=== PATIENT | male | born 1960 | race Two or more races ===

== ENCOUNTER 2017-05-26 23:53 | Emergency (ER) | payer MEDICARE, MEDICAID ==
[~2017-05-26] VITALS: Ht 165.1 cm; Wt 76.2 kg
[~2017-05-26 23:53] MED LIST: ACETAMINOPHEN-1 EAC1 ORAL; ACTOS15 MG ORAL; AMLODIPINE BESY10 MG ORAL; ATIVAN0.5 MG ORAL; ATIVAN2 MG ORAL; ATORVASTATIN CA40 MG ORAL; BACLOFEN10 MG ORAL; BACTRIM-DS1 EA ORAL; CLONIDINE HCL0.2 MG PO; CLONIDINE0.1 MG ORAL; COLACE100 MG ORAL; COREG3.125 MG PO; COUMADIN10 MG ORAL; COUMADIN5 MG ORAL; ENALAPRIL MALEA10 MG PO; GABAPENTIN100 MG ORAL; GABAPENTIN300 MG ORAL; HYDRALAZINE HCL25 M1 ORAL; HYDROCHLOROTHIA25 MG ORAL; KEPPRA LIQ100 MG/1 M NG; LANTUS5 UNITS SUBQ; LEVEMIR FL100 UNIT/1 SUBQ; LEXAPRO10 MG ORAL; LIPITOR20 MG ORAL; LISINOPRIL10 MG ORAL; LISINOPRIL20 MG ORAL; LISINOPRIL40 MG ORAL; LONITEN2.5 MG ORAL; LOPRESSOR25 M1 ORAL; LOSARTAN POTASS25 MG ORAL; METOPROLOL TART50 MG ORAL; NEURONTIN300 MG ORAL; NEURONTIN300 MG PO; NORCO 5-325 TA1 EACH ORAL; NORVASC5 MG ORAL; NOVOLOG100 UNITS1 SUBQ; OMEPRAZOLE20 M2 ORAL; OMEPRAZOLE40 M1 ORAL; PLAVIX75 MG ORAL; RENVELA800 MG ORAL; SERTRALINE HCL25 MG ORAL; SIMVASTATIN5 MG PO; TRAMADOL HCL50 MG ORAL; TYLENOL EXTRA500 MG ORAL; TYLENOL WITH C1 EACH PO; WARFARIN SODIU7.5 MG ORAL; ZANTAC150 MG ORAL; ZITHROMAX250 MG ORAL
[2017-05-27 01:10] LABS: EOSINOPHILS % (AUTO) 5.4 % (0.0-3.0); LYMPHOCYTES % (AUTO) 23.8 % (20.0-45.0); MEAN CORPUSCULAR HEMOGLOBIN 29.3 PG (27.0-31.0); MEAN CORPUSCULAR HGB CONC 31.2 G/DL (32.0-36.0); MEAN CORPUSCULAR VOLUME 94 FL (80-99); MONOCYTES % (AUTO) 11.6 % (1.0-10.0); NEUTROPHILS % (AUTO) 57.2 % (45.0-75.0); PLATELET COUNT 118 K/UL (150-450); RED BLOOD COUNT 3.86 M/UL (4.70-6.10); RED CELL DISTRIBUTION WIDTH 14.7 % (11.6-14.8)
[2017-05-27 01:28] LABS: CREATININE 10.2 mg/dL (0.7-1.2); GLOMERULAR FILTRATION RATE 5.3 mL/min (>60); POTASSIUM 4.7 mEQ/L (3.4-4.9)
[2017-05-27 02:00] VITALS: BP 114/58
--- NOTE | 2017-05-27 02:09 | Emergency Room Report ---
History of Present Illness General Chief Complaint: Abnormal Labs Source: Patient, Family Member Present Illness HPI Is a 57-year-old male with a history of diabetes and high blood pressure. He presents with chief complaint of hypoglycemia. He took his insulin tonight and did not eat much. Blood sugar was in the 60s at home. He's been taking cookies and juice. He's been shaky at home. Fell better now. No other complaint. Allergies: Coded Allergies: No Known Allergies (Verified , 10/24/07) Patient History Past Medical History: see triage record, old chart reviewed, DM, HTN, dialysis Past Surgical History: other Pertinent Family History: none Social History: Denies: smoking Immunizations: other Reviewed Nursing Documentation: PMH: Agreed, PSxH: Agreed Nursing Documentation-PMH Past Medical History: No History, Except For Hx Cardiac Problems: Yes Hx Hypertension: Yes Hx Pacemaker: No Hx Asthma: No Hx COPD: No Hx Diabetes: Yes Hx Cancer: No Hx Gastrointestinal Problems: No Hx Dialysis: Yes - ESRD,[id number] Hx Neurological Problems: Yes 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 Hx Seizures: No Review of Systems Eye: Denies: blurred vision, eye pain ENT: Denies: ear pain, nose congestion, throat swelling Respiratory: Denies: cough, shortness of breath Cardiovascular: Denies: chest pain, palpitations Gastrointestinal: Denies: abdominal pain, diarrhea, nausea, vomiting Musculoskeletal: Denies: back pain, joint pain Skin: Denies: rash Neurological: Denies: headache, numbness Endocrine: Denies: increased thirst, increased urine Hematologic/Lymphatic: Denies: easy bruising All Other Systems: negative except mentioned in HPI Physical Exam Vital Signs Date Time Temp Pulse Resp B/P Pulse Ox O2 Delivery O2 Flow Rate FiO2 05/27/17 00:01 97.9 93 16 221/119 99 Room Air vitals with hypertension Sp02 EP Interpretation: reviewed, normal General Appearance: well appearing, no apparent distress, alert Head: normocephalic, atraumatic Eyes: bilateral eye EOMI, bilateral eye PERRL ENT: hearing grossly normal, normal pharynx Neck: full range of motion, supple, no meningismus Respiratory: chest non-tender, lungs clear, normal breath sounds Cardiovascular #1: regular rate, rhythm, no murmur Gastrointestinal: normal bowel sounds, non tender, no mass, no organomegaly, no bruit, non-distended Musculoskeletal: back normal, gait/station normal, normal range of motion Psychiatric: mood/affect normal Skin: warm/dry Medical Decision Making Diagnostic Impression: Primary Impression: Hypoglycemia due to insulin Additional Impression: Hypertension Qualified Codes: I10 - Essential (primary) hypertension ER Course Patient presents with hypoglycemia. Blood sugars been stable since I sent him here. Blood pressure better. We'll discharge home. Lab Results Impression labs unremarkable and at baseline Last Vital Signs Date Time Temp Pulse Resp B/P Pulse Ox O2 Delivery O2 Flow Rate FiO2 05/27/17 00:01 97.9 93 16 221/119 99 Room Air Status: improved Disposition: HOME, SELF-CARE Condition: Stable Referrals: NIGEL ARREAGA (PCP) Additional Instructions: followup your Dr. in 2-3 days. Go to your dialysis. Return if symptom worsen. eat regularly if you take insulin. NATALYA IVORY M.D. May 27, 2017 02:08
[2017-05-27 02:45] VITALS: BP 127/66
== END 2017-05-27 02:48 | disposition home or self-care (01) ==
LOC: EMR 23:59
DX: E11.649 Type 2 diabetes mellitus with hypoglycemia without coma (principal); T38.3X5A Adverse effect of insulin and oral hypoglycemic [antidiabetic] drugs, initial encounter; Y92.89 Other specified places as the place of occurrence of the external cause; Z79.4 Long term (current) use of insulin; N18.6 End stage renal disease; Z99.2 Dependence on renal dialysis; I12.0 Hypertensive chronic kidney disease with stage 5 chronic kidney disease or end stage renal disease
CPT/HCPCS: 36415; 80048; 82962; 85025; 99282

== ENCOUNTER 2017-07-14 01:00 | Emergency (ER) | payer MEDICARE, MEDICAID ==
[~2017-07-14] VITALS: Ht 165.1 cm; Wt 77.1 kg
[2017-07-14] MEDS ORDERED: ELIQUIS2.5 MG PO (01:19)
[2017-07-14] MEDS ORDERED: HYDROmorphone 1mg/ml Carpuject IVP ONE (01:30)
[2017-07-14] MEDS: Norco 5mg/325mg tab ORAL ONE ×2 (01:39→01:43)
[2017-07-14 01:58] LABS: CREATININE 9.9 mg/dL (0.7-1.2); GLOMERULAR FILTRATION RATE 5.5 mL/min (>60)
[2017-07-14 02:07] LABS: POTASSIUM 6.5 mEQ/L (3.4-4.9)
--- NOTE | 2017-07-14 02:14 | Emergency Room Report ---
History of Present Illness General Chief Complaint: Hypertension Source: Patient, Family Member Present Illness HPI Is a 57-year-old male with a history of renal failure on hemodialysis. Hemodialysis days are Sunday, and Sunday. He presents with chief when a high blood pressure. Also has chronic lower back pain. No fever chills but no nausea no vomiting. Blood pressure at home was systolic over 200. Denies any other complaint. Allergies: Coded Allergies: No Known Allergies (Verified , 10/24/07) Patient History Past Medical History: see triage record, old chart reviewed, HTN, renal disease , dialysis Past Surgical History: other Pertinent Family History: none Social History: Denies: smoking Immunizations: other Reviewed Nursing Documentation: PMH: Agreed, PSxH: Agreed Nursing Documentation-PMH Past Medical History: No History, Except For Hx Cardiac Problems: Yes Hx Hypertension: Yes Hx Pacemaker: No Hx Asthma: No Hx COPD: No Hx Diabetes: Yes Hx Cancer: No Hx Gastrointestinal Problems: No Hx Dialysis: Yes - ESRD,[id number] Hx Neurological Problems: Yes 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 Hx Seizures: No Review of Systems Eye: Denies: eye pain, blurred vision ENT: Denies: ear pain, nose congestion, throat swelling Respiratory: Denies: cough, shortness of breath Cardiovascular: Denies: chest pain, palpitations Gastrointestinal: Denies: abdominal pain, diarrhea, nausea, vomiting Musculoskeletal: Reports: back pain, Denies: joint pain Skin: Denies: rash Neurological: Denies: headache, numbness Endocrine: Denies: increased thirst, increased urine Hematologic/Lymphatic: Denies: easy bruising All Other Systems: negative except mentioned in HPI Physical Exam Vital Signs Date Time Temp Pulse Resp B/P (MAP) Pulse Ox O2 Delivery O2 Flow Rate FiO2 07/14/17 01:08 97.7 88 15 223/90 100 Room Air vitals with highblood pressure Sp02 EP Interpretation: reviewed, normal General Appearance: well appearing, no apparent distress, alert Head: normocephalic, atraumatic Eyes: bilateral eye PERRL, bilateral eye EOMI ENT: hearing grossly normal, normal pharynx Neck: full range of motion, supple, no meningismus Respiratory: chest non-tender, lungs clear, normal breath sounds Cardiovascular #1: regular rate, rhythm, no murmur Gastrointestinal: normal bowel sounds, non tender, no mass, no organomegaly, no bruit, non-distended Musculoskeletal: back normal, gait/station normal, normal range of motion Psychiatric: mood/affect normal Skin: warm/dry Medical Decision Making Diagnostic Impression: Primary Impression: Hypertension Qualified Codes: I10 - Essential (primary) hypertension ER Course Patient presents with high blood pressure. No evidence of end organ damage. He is asymptomatic from it. Better after clonidine. We'll discharge home. He scheduled for dialysis in a couple hours. Chest X-Ray Diagnostic Results Chest X-Ray Diagnostic Results : Chest X-Ray Ordered: Yes # of Views/Limited/Complete: 1 View Indication: Shortness of Breath EP Interpretation: Yes Interpretation: no consolidation, no effusion, no pneumothorax, no acute cardiopulmonary disease Impression: No acute disease Electronically Signed by: Electronically signed by Danny Lorenzo MD Last Vital Signs Date Time Temp Pulse Resp B/P (MAP) Pulse Ox O2 Delivery O2 Flow Rate FiO2 07/14/17 01:40 223/90 07/14/17 01:08 97.7 88 15 100 Room Air Status: improved Disposition: HOME, SELF-CARE Condition: Stable Referrals: NON PHYSICIAN (PCP) Patient Instructions: High Blood Pressure (Hypertension) Additional Instructions: Go to dialysis this morning. Followup with your Dr. in 7 days. Return if worse. DANNY LORENZO M.D. Jul 14, 2017 02:14
[2017-07-14] MEDS ORDERED: traMADol 50mg tab ORAL ONE (02:15)
[2017-07-14 03:48] VITALS: BP 223/90
--- NOTE | 2017-07-14 09:21 | Diagnostic Imaging Report ---
Indication: Shortness of breath Technique: XRAY CHEST 1 V Comparison: 09/01/16 Findings: Cardiac silhouette is prominent. There is a left internal jugular permacath. There is mild central pulmonary vascular congestion and lung base atelectasis. Degenerative changes of the spine are noted. Left-sided vascular stent is seen. Impression: Mild central pulmonary vascular congestion and lung base atelectasis. Clinical correlation/followup recommended.
== END 2017-07-14 03:53 | disposition home or self-care (01) ==
LOC: EMR 01:17
DX: I12.0 Hypertensive chronic kidney disease with stage 5 chronic kidney disease or end stage renal disease (principal); N18.6 End stage renal disease; Z99.2 Dependence on renal dialysis; I69.354 Hemiplegia and hemiparesis following cerebral infarction affecting left non-dominant side
CPT/HCPCS: 36415; 71010; 80048; 96374; 96375; 99284

== ENCOUNTER 2017-11-24 11:38 | Emergency (ER) | payer MEDICARE, MEDICAID ==
[~2017-11-24] VITALS: Ht 165.1 cm; Wt 68.0 kg
[~2017-11-24 11:38] MED LIST changes: +ELIQUIS2.5 MG PO
[2017-11-24] MEDS ORDERED: LISINOPRIL10 MG ORAL (11:55)
[2017-11-24] MEDS ORDERED: PANTOPRAZOLE SO40 MG ORAL (11:55)
[2017-11-24] MEDS ORDERED: NOVOLOG100 UNITS1 ×2 (11:55)
[2017-11-24] MEDS ORDERED: ADALAT10 MG ORAL (11:55)
[2017-11-24] MEDS ORDERED: SERTRALINE HCL25 MG ORAL (11:55)
[2017-11-24] MEDS ORDERED: Fluorescein Strips RIGHT EYE ONE (12:30)
[2017-11-24] MEDS ORDERED: Tetrahydrozoline 0.05% Opth 15ml BOTH EYES ONE (12:30)
[2017-11-24 12:45] VITALS: BP 152/84
--- NOTE | 2017-11-27 22:15 | Emergency Room Report ---
History of Present Illness General Chief Complaint: Eye Problems Source: Patient, Family Member Present Illness HPI Patient presents with complaints of right-sided eye redness Patient reports that he did have several vomiting episode earlier which has improved Denies any headache there is a note regarding pain on the triage note however the patient denies any eye pain to me Her reports that he felt some pressure previously but denies any discomfort at this time Is also a note regarding blurriness on triage patient denies any blurriness has changed his vision is at baseline levels Denies any fevers or chills Patient has history of dialysis Allergies: Coded Allergies: No Known Allergies (Verified , 10/24/07) Patient History Past Medical History: see triage record Pertinent Family History: none Reviewed Nursing Documentation: PMH: Agreed, PSxH: Agreed Nursing Documentation-PMH Hx Cardiac Problems: Yes Hx Hypertension: Yes Hx Pacemaker: No Hx Asthma: No Hx COPD: No Hx Diabetes: Yes - Type 2 Hx Cancer: No Hx Gastrointestinal Problems: No Hx Dialysis: Yes - ESRD,[id number] Hx Neurological Problems: Yes Hx Cerebrovascular Accident: Yes - Left sided-weakness Hx Seizures: No Review of Systems All Other Systems: negative except mentioned in HPI Physical Exam Vital Signs Date Time Temp Pulse Resp B/P (MAP) Pulse Ox O2 Delivery O2 Flow Rate FiO2 11/24/17 11:49 99.1 101 19 152/84 97 Room Air Sp02 EP Interpretation: reviewed, normal General Appearance: well appearing, no apparent distress Head: normocephalic, atraumatic Eyes: right eye other - Right-sided lateral subconjunctival hemorrhage ENT: normal pharynx, no angioedema Neck: full range of motion, supple Respiratory: lungs clear, normal breath sounds Cardiovascular #1: regular rate, rhythm, no edema Gastrointestinal: non tender, soft Genitourinary: no CVA tenderness Musculoskeletal: normal inspection Neurologic: alert, oriented x3 Skin: no rash, warm/dry Lymphatic: no adenopathy Medical Decision Making Diagnostic Impression: Primary Impression: subconjunctival hemorrhage ER Course Patient had fluorescein staining of pain of the eye There is no signs of any uptake The pressure of the eye clinically is also equal Patient has clinical findings that appear to be very much in line with subconjunctival hemorrhage Patient's pupils are equally reactive patient's blood pressure is also appropriate Last Vital Signs Date Time Temp Pulse Resp B/P (MAP) Pulse Ox O2 Delivery O2 Flow Rate FiO2 11/24/17 12:45 99.1 19 152/84 97 Room Air 11/24/17 11:49 101 Status: improved Disposition: HOME, SELF-CARE Condition: Improved Referrals: NON PHYSICIAN (PCP) Patient Instructions: Subconjunctival Hemorrhage Additional Instructions: Patient is provided with the discharge instructions notified to follow up with primary doctor in the next 2-3 days otherwise return to the er with any worsening symptoms. Please note that this report is being documented using [employer] technology. This can lead to erroneous entry secondary to incorrect interpretation by the dictating instrument. KETAN AVILA D.O. Nov 27, 2017 22:14
== END 2017-11-24 12:45 | disposition home or self-care (01) ==
LOC: EMR 11:55
DX: H11.31 Conjunctival hemorrhage, right eye (principal)
CPT/HCPCS: 99283

== ENCOUNTER 2018-09-10 13:24 | Emergency (ER) | payer MEDICARE, MEDICAID ==
[~2018-09-10] VITALS: Ht 165.1 cm; Wt 72.6 kg
[~2018-09-10 13:24] MED LIST changes: +ADALAT10 MG ORAL; +NOVOLOG100 UNITS1; +PANTOPRAZOLE SO40 MG ORAL
--- NOTE | 2018-09-10 13:46 | Emergency Room Report ---
History of Present Illness General Chief Complaint: General Complaint Source: Patient, Medical Record Present Illness HPI 58-year-old male presents to the emergency department complaining of 10 out of 10 in severity pain to the left hand with swelling and discoloration 3 weeks status post fistula placement in the left arm. She reports initially after surgery he had some swelling in the left upper extremity and neck and face which did resolve and he began feeling some pain amount arm. Patient reports pain has been progressive. [facility] Pt. reports Dialysis 3x per week. Last performed today [employer]. pt. reports hx of DM and CVA which left him with a left sided deficit. Pt. denies fevers, chills or trauma. Allergies: Coded Allergies: No Known Allergies (Verified , 09/10/18) Patient History Past Medical History: see triage record, HTN, renal disease, dialysis Past Surgical History: other Pertinent Family History: none Reviewed Nursing Documentation: PMH: Agreed; PSxH: Agreed Nursing Documentation-PMH Past Medical History: No History, Except For Hx Cardiac Problems: Yes Hx Hypertension: Yes Hx Pacemaker: No Hx Asthma: No Hx COPD: No Hx Diabetes: Yes - Type 2 Hx Cancer: No Hx Gastrointestinal Problems: No Hx Dialysis: Yes - ESRD,[id number] Hx Neurological Problems: Yes Hx Cerebrovascular Accident: Yes - Left sided-weakness Hx Seizures: No Review of Systems All Other Systems: negative except mentioned in HPI Physical Exam Vital Signs Date Time Temp Pulse Resp B/P (MAP) Pulse Ox O2 Delivery O2 Flow Rate FiO2 09/10/18 13:33 97.3 98 16 219/93 98 Sp02 EP Interpretation: reviewed, normal General Appearance: no apparent distress, alert, GCS 15, non-toxic, moderate distress Head: normocephalic, atraumatic Eyes: bilateral eye normal inspection, bilateral eye PERRL ENT: hearing grossly normal, normal voice Neck: full range of motion Respiratory: chest non-tender, lungs clear, normal breath sounds, speaking full sentences Cardiovascular #1: regular rate, rhythm, other - Pt. could not tolerate cap refill testing on left digits 3-5. very delayed capillary refill on left index finger. nail beds are pail, the nail beds of left 4th and 5th digits are blue, left hand is cold to touch in comparison to right. there is skin discoloration to digits 4 and 5 of the left had distal to the DIP joints. Cardiovascular #2: 2+ radial (R); 0 radial (L) - also zero Ulnar Musculoskeletal: back normal, gait/station normal, normal range of motion, tender - TTP to left fingers 3-5 to superficial touch. pain with attempts to check ROM. Neurologic: alert, oriented x3, responsive, motor strength/tone normal, sensory intact, speech normal, other - Left arm deficit. , visible hypertrophy, grossly normal Psychiatric: judgement/insight normal Skin: no rash, warm/dry, well hydrated, other - pale/blue discoloration of the left 4th and 5th digits distally. Medical Decision Making PA Attestation Dr. jimenez is my supervising Physician whom patient management has been discussed with. Diagnostic Impression: Primary Impression: Hand steal syndrome Qualified Codes: T82.898A - Other specified complication of vascular prosthetic devices, implants and grafts, initial encounter Additional Impressions: ESRD (end stage renal disease) on dialysis Hyperkalemia Hypertension Qualified Codes: I10 - Essential (primary) hypertension Diabetes mellitus Qualified Codes: E13.8 - Other specified diabetes mellitus with unspecified complications ER Course 58-year-old male presents to the emergency department complaining of 10 out of 10 in severity pain to the left hand with swelling and discoloration 3 weeks status post fistula placement in the left arm. She reports initially after surgery he had some swelling in the left upper extremity and neck and face which did resolve and he began feeling some pain amount arm. Patient reports pain has been progressive. pt. had surgery at [facility]. Pt. reports Dialysis 3x per week. Last performed today [employer]. pt. reports hx of DM and CVA which left him with a left sided deficit. Pt. denies fevers, chills or trauma. Ddx considered but are not limited to a functioning fistula, steal syndrome, gangrene, cellulitis just to name a few Vital signs: are WNL, pt. is afebrile H&PE are most consistent with steal syndrome of the left hand. ORDERS: -CBC, CMP, Coags, type and screen- See labs attached. - anemia of chronic disease, Renal failure cr. 5.9, hyperkalemia 5.3, glucose 304 - EKG; Normal sinus rhythm 94 bpm. Chest x-ray: Pulm. vasc. congestion and cardiomegaly. no effusion. Troponin, Ck, Ck-MB: WNL -US Duplex : NO distal ulnar or radial arterial flow ED INTERVENTIONS: -Morphine IV 2mg DISPOSITION: At this time pt. will be admitted to Dr. Mota for Steal Syndrome and of the left hand with no Radial or Ulnar arterial flow. Dr. [facility] at [facility] agreed to admit the pt. and to continue pt. care management. Labs Test 09/10/18 13:50 White Blood Count 6.1 K/UL (4.8-10.8) Red Blood Count 4.40 M/UL (4.70-6.10) Hemoglobin 12.7 G/DL (14.2-18.0) Hematocrit 40.4 % (42.0-52.0) Mean Corpuscular Volume 92 FL (80-99) Mean Corpuscular Hemoglobin 28.9 PG (27.0-31.0) Mean Corpuscular Hemoglobin Concent 31.5 G/DL (32.0-36.0) Red Cell Distribution Width 15.2 % (11.6-14.8) Platelet Count 185 K/UL (150-450) Mean Platelet Volume 15.4 FL (6.5-10.1) Neutrophils (%) (Auto) % (45.0-75.0) Lymphocytes (%) (Auto) % (20.0-45.0) Monocytes (%) (Auto) % (1.0-10.0) Eosinophils (%) (Auto) % (0.0-3.0) Basophils (%) (Auto) % (0.0-2.0) Differential Total Cells Counted 100 Neutrophils % (Manual) 80 % (45-75) Lymphocytes % (Manual) 11 % (20-45) Monocytes % (Manual) 7 % (1-10) Eosinophils % (Manual) 2 % (0-3) Basophils % (Manual) 0 % (0-2) Band Neutrophils 0 % (0-8) Platelet Estimate Decreased Platelet Morphology Normal Red Blood Cell Morphology Normal Prothrombin Time 10.7 SEC (9.30-11.50) Prothromb Time International Ratio 1.0 (0.9-1.1) Activated Partial Thromboplast Time 20 SEC (23-33) Sodium Level 137 MMOL/L (136-145) Potassium Level 5.3 MMOL/L (3.5-5.1) Chloride Level 96 MMOL/L (98-107) Carbon Dioxide Level 30 MMOL/L (21-32) Anion Gap 11 mmol/L (5-15) Blood Urea Nitrogen 44 mg/dL (7-18) Creatinine 7.9 MG/DL (0.55-1.30) Estimat Glomerular Filtration Rate 7.1 mL/min (>60) Glucose Level 307 MG/DL (74-106) Calcium Level 8.1 MG/DL (8.5-10.1) Total Bilirubin 0.4 MG/DL (0.2-1.0) Aspartate Amino Transf (AST/SGOT) 41 U/L (15-37) Alanine Aminotransferase (ALT/SGPT) 15 U/L (12-78) Alkaline Phosphatase 107 U/L (46-116) Total Creatine Kinase 137 U/L (26-308) Creatine Kinase MB 0.9 NG/ML (0.0-3.6) Creatine Kinase MB Relative Index 0.6 Troponin I 0.005 ng/mL (0.000-0.056) Total Protein 7.9 G/DL (6.4-8.2) Albumin 3.3 G/DL (3.4-5.0) Globulin 4.6 g/dL Albumin/Globulin Ratio 0.7 (1.0-2.7) EKG Diagnostic Results EP Interpretation: Dr. Tobin Rate: normal Rhythm: NSR ST Segments: no acute changes ASA given to the pt in ED: No PA Scribe Text This Interpretation was scribed by BABS Curtis. Chest X-Ray Diagnostic Results Chest X-Ray Diagnostic Results : Chest X-Ray Ordered: Yes # of Views/Limited/Complete: 1 View Indication: Chest Pain EP Interpretation: Yes PA Xray: Interpretation reviewed, by supervising MD, and agrees with findings. Interpretation: no consolidation, no effusion, no pneumothorax, other - pulmonary vasc. congestion and cardiomegaly Impression: Other - abnormal Electronically Signed by: Lashawn Curtis PA-C CT/MRI/US Diagnostic Results CT/MRI/US Diagnostic Results : Imaging Test Ordered: Left Upper Extremity Venous Duplex Impression "Patency of the subclavian, axillary, brachial arteries. The medial and ulnar arteries are patent up to mid forearm area Doppler waveforms are monophasic and low velocity in the forearm statements the radial and ulnar arteries have no color or Doppler signal noted." Per official [place] Report, please see report and CD for further details. Last Vital Signs Date Time Temp Pulse Resp B/P (MAP) Pulse Ox O2 Delivery O2 Flow Rate FiO2 09/10/18 13:33 97.3 98 16 219/93 98 Disposition: ADMITTED INPATIENT Condition: Serious Lashawn Curtis Sep 10, 2018 13:46
[2018-09-10 13:47] VITALS: BP 214/90
[2018-09-10] MEDS ORDERED: Morphine Sulfate 2mg/ml Inj IVP ONE ×2 (14:00→17:00)
[2018-09-10 14:12] LABS: HEMATOCRIT 40.4 % (42.0-52.0); HEMOGLOBIN 12.7 G/DL (14.2-18.0); MEAN CORPUSCULAR VOLUME 92 FL (80-99); RED CELL DISTRIBUTION WIDTH 15.2 % (11.6-14.8); WHITE BLOOD COUNT 6.1 K/UL (4.8-10.8)
--- NOTE | 2018-09-10 14:21 | Diagnostic Imaging Report ---
Indication: Chest pain Technique: XRAY Chest 1v Comparison: 07/14/2017 Findings: Interval removal of the tunneled dialysis catheter. Stable mild cardiomegaly. Mediastinal contours appear sharp. There is central pulmonary vascular congestion. Expiratory atelectasis/vascular crowding noted at the bases. No appreciable pleural effusion. No definite pneumothorax. There are degenerative changes of the spine. No acute osseous abnormality. A vascular stent is again noted on the left. Impression: Central pulmonary vascular congestion/mild fluid overload. Bibasilar bronchovascular crowding/expiratory atelectasis. Interval removal of dialysis catheter.
[2018-09-10 14:32] LABS: ANION GAP 11 mmol/L (5-15); BLOOD UREA NITROGEN 44 mg/dL (7-18); CALCIUM 8.1 MG/DL (8.5-10.1); CARBON DIOXIDE 30 MMOL/L (21-32); CHLORIDE 96 MMOL/L (98-107); CREATININE 7.9 MG/DL (0.55-1.30); POTASSIUM 5.3 MMOL/L (3.5-5.1); SODIUM 137 MMOL/L (136-145)
[2018-09-10 14:46] LABS: ALANINE AMINOTRANSFERASE 15 U/L (12-78); ALBUMIN 3.3 G/DL (3.4-5.0); ALBUMIN/GLOBULIN RATIO 0.7 (1.0-2.7); ALKALINE PHOSPHATASE 107 U/L (46-116); ASPARTATE AMINO TRANSFERASE 41 U/L (15-37); BILIRUBIN,TOTAL 0.4 MG/DL (0.2-1.0); CKMB 0.9 NG/ML (0.0-3.6); CREATINE KINASE 137 U/L (26-308)
[2018-09-10 15:09] LABS: PLATELET COUNT 185 K/UL (150-450)
[2018-09-10 15:11] VITALS: BP 212/89
--- NOTE | 2018-09-10 16:12 | Diagnostic Imaging Report ---
Indication: Left arm pain. History of recent ATV fistula creation on the left. Technique: Arterial Duplex Upper EXT Unil Comparison: None Findings: The left internal jugular vein is noted to be normally compressible. Imaged left common carotid, subclavian and axillary arteries are patent, with demonstrable color flow. Left ventricular is noted to be patent with normal color flow. Some color flow is noted within the proximal left radial artery although this demonstrates a abnormal monophasic velocity waveform. No definite color flow is noted within the more peripheral/distal aspects of the left radial artery. Minimal color flow noted in the proximal left ulnar artery, again with abnormal monophasic, low velocity waveforms. No definite color flow noted in the distal aspects of the left ulnar artery. There is report of a AV fistula at or above the level of the elbow on the left. This is not imaged. Impression: Patient with reported history of AV acces/fistula on the left. Please note that this was not imaged on this exam. Abnormal flow with low velocity, monophasic waveforms in the proximal radial and ulnar arteries. No definite color flow noted in the mid and distal radial and ulnar arteries. Given history of recent AV access/fistula creation, findings are concerning for dialysis access related steal syndrome. Correlate clinically. Findings discussed with BABS Garcia
[2018-09-10] MEDS ORDERED: Morphine Sulfate 4mg/ml Inj (IV/IM USE ONLY) IVP ONE (16:30)
[2018-09-10] MEDS ORDERED: cloNIDine 0.2mg Tab ORAL ONE ×2 (16:30→18:00)
[2018-09-10] MEDS ORDERED: NIFEdipine 10mg cap ORAL ONE ×2 (17:15→17:30)
[2018-09-10 17:52] VITALS: BP 179/75
== END 2018-09-10 18:21 | disposition short-term general hospital (02) ==
LOC: EMR 14:11
DX: T82.898A Other specified complication of vascular prosthetic devices, implants and grafts, initial encounter (principal); E87.5 Hyperkalemia; M79.642 Pain in left hand; I69.854 Hemiplegia and hemiparesis following other cerebrovascular disease affecting left non-dominant side; I12.0 Hypertensive chronic kidney disease with stage 5 chronic kidney disease or end stage renal disease; E11.22 Type 2 diabetes mellitus with diabetic chronic kidney disease; N18.6 End stage renal disease; Z99.2 Dependence on renal dialysis
CPT/HCPCS: 36415; 71045; 80053; 82550; 82553; 84484; 85007; 85025; 85610; 85730; 86850; 86900; 86901; 93005; 93931; 96374; 96375; 96376; 99283; J0360; J2270

== ENCOUNTER 2018-12-22 15:57 | Emergency (ER) | payer MEDICARE, MEDICAID ==
[~2018-12-22] VITALS: Ht 165.1 cm; Wt 72.6 kg
--- NOTE | 2018-12-22 16:05 | NUR ---
ED Nurse Note: pt brought in by daughter c/o feeling like high potassium, feeling dizzy and weak, pt states he had it before. Pt had dialysis yesterday. Noted old AV shunt site on right upper arm and left subclavian permacath. pt states he goes to dialysis tue/thur/sat. Pt AA&ox4, gcs=15, skin warm and dry, mild jaundice, resp even and unlabored on RA, -n/v/d, was brought in by wheelchair. unable to assess gait at this time due to pt's condition but pt states he normally walk with cane. pt NSR on court recording monitor, vss, will cont monitor.
[2018-12-22 16:15] VITALS: BP 128/54
--- NOTE | 2018-12-22 16:16 | Emergency Room Report ---
History of Present Illness General Chief Complaint: Abnormal Labs Source: Patient Present Illness HPI Patient presented for generalized weakness. Patient reports having prior history of end-stage renal disease and normally dialyzed Sunday and Sunday. Patient stated he wanted to dialysis yesterday and had 3 hours of dialysis. He denies any fever. He denies any cold or chest discomfort. He reports feeling somewhat lightheaded. He denies any abdominal pain. Patient states he normally walks with a walker. He had previous CVA with residual left- sided weakness.Patient denies alcohol or smoking. He denies any recent sick contacts. Allergies: Coded Allergies: No Known Allergies (Verified , 09/10/18) Patient History Reviewed Nursing Documentation: PMH: Agreed; PSxH: Agreed Nursing Documentation-PMH Hx Cardiac Problems: Yes Hx Hypertension: Yes Hx Pacemaker: No Hx Asthma: No Hx COPD: No Hx Diabetes: Yes - Type 2 Hx Cancer: No Hx Gastrointestinal Problems: No Hx Dialysis: Yes - ESRD,[id number] Hx Neurological Problems: Yes Hx Cerebrovascular Accident: Yes - Left sided-weakness Hx Seizures: No Review of Systems All Other Systems: negative except mentioned in HPI Physical Exam Vital Signs Date Time Temp Pulse Resp B/P (MAP) Pulse Ox O2 Delivery O2 Flow Rate FiO2 12/22/18 15:58 97.7 61 17 118/65 95 Room Air Sp02 EP Interpretation: reviewed, normal General Appearance: normal inspection, well appearing, no apparent distress, alert, obese, Chronically Ill Head: atraumatic ENT: normal ENT inspection, hearing grossly normal, normal voice Neck: normal inspection, full range of motion, supple, no bony tend Respiratory: normal inspection, lungs clear, normal breath sounds, no respiratory distress, no retraction, no wheezing Cardiovascular #1: regular rate, rhythm, no edema Gastrointestinal: normal inspection, normal bowel sounds, non tender, soft, no guarding, no hernia Genitourinary: no CVA tenderness Musculoskeletal: normal inspection, back normal, normal range of motion Neurologic: normal inspection, alert, responsive, speech normal, motor weakness - left upper extremity contracted, weakness, chronic per patient Psychiatric: normal inspection, judgement/insight normal, mood/affect normal Skin: normal inspection, normal color, no rash Medical Decision Making Diagnostic Impression: Primary Impression: CRF (chronic renal failure) Additional Impression: Hyperglycemia ER Course Patient presented for increased dizziness. Differential diagnosis include was not limited to dehydration, electrolyte abnormality, hyperkalemia among others. Patient was noted to have recent dialysis. He does not appear to be fluid overloaded. Patient was noted to have some chronic left-sided weakness.CT of the head read by radiology showed an without evident acute intracranial hemorrhage or CVA. Patient was given due to hyperglycemia. Patient states he had drinking insulin been drinking soda earlier in the day. Patient does not appear to have any evidence of acute process at this time. Patient was advised to follow-up with primary care physician. Patient be discharged home with family members.Patient was advised not to drink soda and to continue using his insulin at home. Labs Test 12/22/18 16:35 White Blood Count 5.7 K/UL (4.8-10.8) Red Blood Count 4.20 M/UL (4.70-6.10) Hemoglobin 11.6 G/DL (14.2-18.0) Hematocrit 36.8 % (42.0-52.0) Mean Corpuscular Volume 87 FL (80-99) Mean Corpuscular Hemoglobin 27.7 PG (27.0-31.0) Mean Corpuscular Hemoglobin Concent 31.7 G/DL (32.0-36.0) Red Cell Distribution Width 19.3 % (11.6-14.8) Platelet Count 136 K/UL (150-450) Mean Platelet Volume 7.7 FL (6.5-10.1) Neutrophils (%) (Auto) 58.4 % (45.0-75.0) Lymphocytes (%) (Auto) 22.6 % (20.0-45.0) Monocytes (%) (Auto) 12.8 % (1.0-10.0) Eosinophils (%) (Auto) 4.3 % (0.0-3.0) Basophils (%) (Auto) 1.9 % (0.0-2.0) Sodium Level 138 MMOL/L (136-145) Potassium Level 4.5 MMOL/L (3.5-5.1) Chloride Level 98 MMOL/L (98-107) Carbon Dioxide Level 28 MMOL/L (21-32) Anion Gap 12 mmol/L (5-15) Blood Urea Nitrogen 48 mg/dL (7-18) Creatinine 9.0 MG/DL (0.55-1.30) Estimat Glomerular Filtration Rate 6.1 mL/min (>60) Glucose Level 402 MG/DL (74-106) Calcium Level 8.9 MG/DL (8.5-10.1) Total Bilirubin 0.3 MG/DL (0.2-1.0) Aspartate Amino Transf (AST/SGOT) 11 U/L (15-37) Alanine Aminotransferase (ALT/SGPT) 12 U/L (12-78) Alkaline Phosphatase 113 U/L (46-116) Troponin I 0.000 ng/mL (0.000-0.056) Total Protein 7.1 G/DL (6.4-8.2) Albumin 3.4 G/DL (3.4-5.0) Globulin 3.7 g/dL Albumin/Globulin Ratio 0.9 (1.0-2.7) Last Vital Signs Date Time Temp Pulse Resp B/P (MAP) Pulse Ox O2 Delivery O2 Flow Rate FiO2 12/22/18 15:58 97.7 61 17 118/65 95 Room Air Status: improved Disposition: HOME, SELF-CARE Condition: Stable Khalif Mayers MD Dec 22, 2018 16:16
--- NOTE | 2018-12-22 16:53 | NUR ---
ED Nurse Note: MEDICATION NOT LOADED IN [facility], CALLED PHARMACY.
[2018-12-22 16:54] LABS: BASOPHILS % (AUTO) 1.9 % (0.0-2.0); EOSINOPHILS % (AUTO) 4.3 % (0.0-3.0); HEMATOCRIT 36.8 % (42.0-52.0); HEMOGLOBIN 11.6 G/DL (14.2-18.0); LYMPHOCYTES % (AUTO) 22.6 % (20.0-45.0); MEAN CORPUSCULAR VOLUME 87 FL (80-99); MONOCYTES % (AUTO) 12.8 % (1.0-10.0); NEUTROPHILS % (AUTO) 58.4 % (45.0-75.0); PLATELET COUNT 136 K/UL (150-450); RED CELL DISTRIBUTION WIDTH 19.3 % (11.6-14.8); WHITE BLOOD COUNT 5.7 K/UL (4.8-10.8)
[2018-12-22] MEDS ORDERED: Insulin Human Regular 100units/ml 3ml SUBQ ONE (17:00)
[2018-12-22] MEDS ORDERED: COREG6.25 MG ORAL (17:04)
[2018-12-22] MEDS ORDERED: NEURONTIN300 MG ORAL (17:04)
[2018-12-22] MEDS ORDERED: HUMULIN 70100 UNIT/2 SUBQ ×2 (17:04)
[2018-12-22] MEDS ORDERED: ELIQUIS2.5 MG PO (17:04)
[2018-12-22] MEDS ORDERED: LONITEN2.5 MG PO (17:04)
[2018-12-22] MEDS ORDERED: ADALAT20 MG ORAL (17:04)
[2018-12-22] MEDS ORDERED: RENVELA800 MG ORAL (17:04)
--- NOTE | 2018-12-22 17:07 | NUR ---
ED Nurse Note: PT WENT TO CT, WILL GIVE MED WHEN PT RETURNS.
[2018-12-22 17:27] LABS: ANION GAP 12 mmol/L (5-15); BLOOD UREA NITROGEN 48 mg/dL (7-18); CALCIUM 8.9 MG/DL (8.5-10.1); CARBON DIOXIDE 28 MMOL/L (21-32); CHLORIDE 98 MMOL/L (98-107); POTASSIUM 4.5 MMOL/L (3.5-5.1); SODIUM 138 MMOL/L (136-145)
[2018-12-22 17:31] LABS: ALANINE AMINOTRANSFERASE 12 U/L (12-78); ALBUMIN 3.4 G/DL (3.4-5.0); ALBUMIN/GLOBULIN RATIO 0.9 (1.0-2.7); ALKALINE PHOSPHATASE 113 U/L (46-116); ASPARTATE AMINO TRANSFERASE 11 U/L (15-37); BILIRUBIN,TOTAL 0.3 MG/DL (0.2-1.0)
[2018-12-22 19:03] VITALS: BP 105/67
--- NOTE | 2018-12-22 19:04 | NUR ---
ED Nurse Note: pt cleared to be d/c per ERMD, pt accucheck repeat was 358, ERMD notified and stated it's okay to dc, asymptomatic, pt discharge instruction and aftercare instruction provided, pt advised to follow up with pcp to continue care or return to ed if sx worsen or new sx develop, pt verbalized understanding and agrees with plan, pt vss, airway intact, resp even and unlabored on RA, NSR on satellite project site monitor, all belongings left w/ pt, wrist band removed, iv d/c and dressing applied. pt was accompanied by in wheelchair.
--- NOTE | 2018-12-23 11:52 | Diagnostic Imaging Report ---
Indications: Dizziness and vertigo Technique: Spiral acquisitions obtained through the brain. Angled axial and coronal 5 x 5 mm slices were reconstructed. Total dose length product 1288.11 mGycm. CTDI vol(s) 70.38 mGy. Dose reduction achieved using automated exposure control Comparison: None. Findings: Encephalomalacia is seen in the left posterior temporal and occipital lobes, extending slightly into the parasagittal parietal lobe as well as into the basal ganglia, consistent with old infarct. This results in ex vacuo dilatation of the atrium, occipital horn, and temporal horn of the right lateral ventricle. There is a large area of encephalomalacia involving the left cerebellar hemisphere. There is slight widening of the sulci in the right high parietal lobe near the vertex, without discrete parenchymal low-attenuation. This may also reflect some subtle encephalomalacia. There is generalized minimal enlargement of the ventricles and extra axial CSF spaces. No acute intracranial hemorrhage nor edema, mass effect, nor midline shift. Normal contreras-white differentiation elsewhere. The calvarium is intact. The orbits and sinuses are unremarkable. The mastoids are clear. Impression: Evidence of multiple old infarcts, as described Mild age-related volume loss Negative for acute intracranial bleed or mass effect This agrees with the preliminary interpretation provided overnight by [facility] teleradiology service. The CT scanner at [facility] is accredited by the [employer] and the scans are performed using protocols designed to limit radiation exposure to as low as reasonably achievable to attain images of sufficient resolution adequate for diagnostic evaluation.
== END 2018-12-22 19:00 | disposition home or self-care (01) ==
LOC: EMR 16:40
DX: I12.0 Hypertensive chronic kidney disease with stage 5 chronic kidney disease or end stage renal disease (principal); E11.22 Type 2 diabetes mellitus with diabetic chronic kidney disease; E11.65 Type 2 diabetes mellitus with hyperglycemia; N18.6 End stage renal disease; Z99.2 Dependence on renal dialysis; R42 Dizziness and giddiness; I69.354 Hemiplegia and hemiparesis following cerebral infarction affecting left non-dominant side
CPT/HCPCS: 36415; 70450; 80053; 82962; 84484; 85025; 96372; 99284; J1815

== ENCOUNTER 2018-12-24 03:01 | Inpatient (IN) | payer MEDICARE, MEDICAID ==
[~2018-12-24] VITALS: Ht 165.1 cm; Wt 74.9 kg
[~2018-12-24 03:01] MED LIST changes: +ADALAT20 MG ORAL; +COREG6.25 MG ORAL; +HUMULIN 70100 UNIT/2 SUBQ; +LONITEN2.5 MG PO
--- NOTE | 2018-12-24 03:14 | NUR ---
ED Nurse Note: pt wheelchaired in c/o chest pain started around 1am on left side, denies sob nor n/v. Pt AA&ox4, gcs=15, skin warm and dry, resp even and unlabored on RA, -n/v/d, on wheelchair, NSR on director of cardiac rehabilitation. Old AV shunt site on BUE, and left subclavian permacath noted. pt goes dialysis tue,thur,sat. will cont monitor. accucheck = 165.
[2018-12-24 03:15] VITALS: BP 125/40
--- NOTE | 2018-12-24 03:15 | NUR ---
ED Nurse Note: report given to LORI HILL and endorsed care.
[2018-12-24 03:29] LABS: BASOPHILS % (AUTO) 1.6 % (0.0-2.0); EOSINOPHILS % (AUTO) 7.2 % (0.0-3.0); HEMATOCRIT 35.4 % (42.0-52.0); HEMOGLOBIN 11.2 G/DL (14.2-18.0); LYMPHOCYTES % (AUTO) 20.9 % (20.0-45.0); MEAN CORPUSCULAR VOLUME 87 FL (80-99); MONOCYTES % (AUTO) 9.8 % (1.0-10.0); NEUTROPHILS % (AUTO) 60.4 % (45.0-75.0); PLATELET COUNT 139 K/UL (150-450); RED BLOOD COUNT 4.09 M/UL (4.70-6.10); RED CELL DISTRIBUTION WIDTH 19.3 % (11.6-14.8); WHITE BLOOD COUNT 5.8 K/UL (4.8-10.8)
[2018-12-24 03:41] LABS: ANION GAP 10 mmol/L (5-15); BLOOD UREA NITROGEN 72 mg/dL (7-18); CALCIUM 8.9 MG/DL (8.5-10.1); CARBON DIOXIDE 30 MMOL/L (21-32); CHLORIDE 99 MMOL/L (98-107); CREATININE 12.1 MG/DL (0.55-1.30); POTASSIUM 4.1 MMOL/L (3.5-5.1); SODIUM 139 MMOL/L (136-145)
[2018-12-24 03:55] LABS: ALANINE AMINOTRANSFERASE 11 U/L (12-78); ALBUMIN 3.4 G/DL (3.4-5.0); ALBUMIN/GLOBULIN RATIO 0.9 (1.0-2.7); ALKALINE PHOSPHATASE 128 U/L (46-116); ASPARTATE AMINO TRANSFERASE 8 U/L (15-37); BILIRUBIN,TOTAL 0.3 MG/DL (0.2-1.0); CREATINE KINASE 54 U/L (26-308)
--- NOTE | 2018-12-24 04:05 | NUR ---
ED Nurse Note: collected MRSA swab; refused vre/cre swab; sent down to lab.
--- NOTE | 2018-12-24 04:35 | Emergency Room Report ---
History of Present Illness General Chief Complaint: Chest Pain Source: Patient, Significant Other Present Illness HPI 58-year-old male presents ED for evaluation. Brought in by . Complaining of chest pain. Started one hour prior to arrival. Sudden onset. Sharp, 7 out of 10, nonradiating. States chest pain resolved upon arrival. Denies shortness of breath. Denies alcohol or drug use. History of end-stage renal disease. His dialysis Sunday. States he is compliant with his dialysis. No other aggravating relieving factors. Denies any other associated symptoms Allergies: Coded Allergies: ACETAMINOPHEN (Verified Allergy, Unknown, 12/24/18) HYDROCODONE (Verified Allergy, Unknown, 12/24/18) Patient History Past Medical History: DM, HTN, CVA/TIA, renal disease, dialysis Past Surgical History: none Pertinent Family History: none Social History: Denies: smoking, alcohol use, drug use Immunizations: UTD Reviewed Nursing Documentation: PMH: Agreed; PSxH: Agreed Nursing Documentation-PMH Hx Cardiac Problems: Yes Hx Hypertension: Yes Hx Pacemaker: No Hx Asthma: No Hx COPD: No Hx Diabetes: Yes - Type 2 Hx Cancer: No Hx Gastrointestinal Problems: No Hx Dialysis: Yes - ESRD,[id number] Hx Neurological Problems: Yes Hx Cerebrovascular Accident: Yes - Left sided-weakness Hx Seizures: No Review of Systems All Other Systems: negative except mentioned in HPI Physical Exam Vital Signs Date Time Temp Pulse Resp B/P (MAP) Pulse Ox O2 Delivery O2 Flow Rate FiO2 12/24/18 03:04 97.5 62 16 155/68 95 Room Air Sp02 EP Interpretation: reviewed, normal General Appearance: no apparent distress, alert, GCS 15, non-toxic Head: normocephalic, atraumatic Eyes: bilateral eye normal inspection, bilateral eye PERRL ENT: hearing grossly normal, normal pharynx, no angioedema, normal voice Neck: full range of motion, supple/symm/no masses Respiratory: chest non-tender, lungs clear, normal breath sounds, speaking full sentences, other - permacath on chest Cardiovascular #1: regular rate, rhythm, no edema Cardiovascular #2: 2+ carotid (R), 2+ carotid (L), 2+ radial (R), 2+ radial (L) , 2+ dorsalis pedis (R), 2+ dorsalis pedis (L) Gastrointestinal: normal bowel sounds, non tender, soft, non-distended, no guarding, no rebound Rectal: deferred Genitourinary: normal inspection, no CVA tenderness Musculoskeletal: back normal, gait/station normal, normal range of motion, non- tender Neurologic: alert, oriented x3, responsive, motor strength/tone normal, sensory intact, speech normal Psychiatric: judgement/insight normal, memory normal, mood/affect normal, no suicidal/homicidal ideation Reflexes: 3+ bicep (R), 3+ bicep (L), 3+ tricep (R), 3+ tricep (L), 3+ knee (R) , 3+ knee (L) Skin: normal color, no rash, warm/dry, well hydrated Lymphatic: no adenopathy Medical Decision Making Diagnostic Impression: Primary Impression: ACS (acute coronary syndrome) Additional Impressions: ESRD (end stage renal disease) on dialysis Status post CVA ER Course Hospital Course 58-year-old male presents ED complaining of chest pain Differential diagnoses include: DE/unstable angina, contusion, muscle strain, PTX, rib fracture Clinical course Patient placed on stretcher. on risk compliance analyst. After initial history and physical I ordered labs, EKG, chest x-ray labs reviewed- no leukocytosis, hb/hct stable, K ok, BUN/Cr elevated, trop x 1 negative EKG - NSR, no acute ischemic changes interpreted by me Chest x-ray- cardiomegaly, permcath in place Case discussed with Dr. Hubbard and he agreed to accept the patient to his service for further care and support I. I feel this is a highly complex case requiring extensive working including EKG/Rhythm strip, Xray/CT/US, Blood/urine lab work, repeat exams while in ED, and administration of strong opiates/narcotics for pain control, admission to hospital or close patient follow up. Diagnosis - ACS, ESRD on dialysis, s/p CVA admitted to telemetry in serious condition Labs Test 12/24/18 03:22 White Blood Count 5.8 K/UL (4.8-10.8) Red Blood Count 4.09 M/UL (4.70-6.10) Hemoglobin 11.2 G/DL (14.2-18.0) Hematocrit 35.4 % (42.0-52.0) Mean Corpuscular Volume 87 FL (80-99) Mean Corpuscular Hemoglobin 27.4 PG (27.0-31.0) Mean Corpuscular Hemoglobin Concent 31.7 G/DL (32.0-36.0) Red Cell Distribution Width 19.3 % (11.6-14.8) Platelet Count 139 K/UL (150-450) Mean Platelet Volume 8.2 FL (6.5-10.1) Neutrophils (%) (Auto) 60.4 % (45.0-75.0) Lymphocytes (%) (Auto) 20.9 % (20.0-45.0) Monocytes (%) (Auto) 9.8 % (1.0-10.0) Eosinophils (%) (Auto) 7.2 % (0.0-3.0) Basophils (%) (Auto) 1.6 % (0.0-2.0) Sodium Level 139 MMOL/L (136-145) Potassium Level 4.1 MMOL/L (3.5-5.1) Chloride Level 99 MMOL/L (98-107) Carbon Dioxide Level 30 MMOL/L (21-32) Anion Gap 10 mmol/L (5-15) Blood Urea Nitrogen 72 mg/dL (7-18) Creatinine 12.1 MG/DL (0.55-1.30) Estimat Glomerular Filtration Rate 4.3 mL/min (>60) Glucose Level 173 MG/DL (74-106) Calcium Level 8.9 MG/DL (8.5-10.1) Total Bilirubin 0.3 MG/DL (0.2-1.0) Aspartate Amino Transf (AST/SGOT) 8 U/L (15-37) Alanine Aminotransferase (ALT/SGPT) 11 U/L (12-78) Alkaline Phosphatase 128 U/L (46-116) Total Creatine Kinase 54 U/L (26-308) Creatine Kinase MB 1.0 NG/ML (0.0-3.6) Creatine Kinase MB Relative Index 1.8 Troponin I 0.004 ng/mL (0.000-0.056) Pro-B-Type Natriuretic Peptide 45149 pg/mL (0-125) Total Protein 7.1 G/DL (6.4-8.2) Albumin 3.4 G/DL (3.4-5.0) Globulin 3.7 g/dL Albumin/Globulin Ratio 0.9 (1.0-2.7) EKG Diagnostic Results Rate: normal Rhythm: NSR ST Segments: no acute changes ASA given to the pt in ED: No - took aspirin at home Rhythm Strip Diag. Results EP Interpretation: yes Rhythm: NSR, no PVC's, no ectopy Chest X-Ray Diagnostic Results Chest X-Ray Diagnostic Results : Chest X-Ray Ordered: Yes # of Views/Limited/Complete: 1 View Indication: Chest Pain EP Interpretation: Yes Interpretation: no consolidation, no effusion, no pneumothorax, no acute cardiopulmonary disease, other - permacath in chest Impression: No acute disease Electronically Signed by: Electronically signed by Arron Tobin MD Last Vital Signs Date Time Temp Pulse Resp B/P (MAP) Pulse Ox O2 Delivery O2 Flow Rate FiO2 12/24/18 03:15 97.5 61 18 125/40 98 Room Air Status: improved Disposition: ADMITTED INPATIENT Condition: Serious Referrals: NON PHYSICIAN (PCP) Arron Tobin MD Dec 24, 2018 04:35
[2018-12-24 05:07] VITALS: BP 111/35
[2018-12-24] MEDS ORDERED: NS 250 ML IVPB ONE (05:15)
--- NOTE | 2018-12-24 05:35 | NUR ---
TRANSFER TO FLOOR: Patient transferred to Telemetry 210-2 as ordered, per MD Stevie . Report given to LORI Patel. Belongings list completed with receiving RN. PT AO4. NAD
[2018-12-24 05:45] VITALS: BP 113/80
--- NOTE | 2018-12-24 05:45 | NUR ---
NURSE NOTES: RECEIVED PT FROM SABINE AT BEDSIDE. PT IS X3-4, ABLE TO MAKE NEEDS KNOWN, FOLLOWS COMMANDS. DYE JIG OPERATOR SHOWING SR W/ 1 DG AVB. PT IS ON RA SATING AT 97%. NO INPATIENT ORDERS CURRENTLY. SKIN IS CLEAN, DRY INTACT. OLD BUE SHUNTS, PT STATES ARE NON-WORKING. ACCUCHEK WAS 165 IN ER. LEFT SUBCLAVIAN PERMACATH NOTS, ASYMPTOMATIC. RAC 20G LOCK, ASYMPTOMATIC. CXR SHOWING CARDIOMEGALY. FAMILY AT BEDSIDE. PT RECEIVES HD T, TH, SA. STATES COMPLIANT. BED IS LOCKED IN LOWEST POSITION, SR X3, CALL [place] WITHIN REACH, BED ALARM ON. WILL CONTINUE TO MONITOR AND FOLLOW W/ PLAN OF CARE.
--- NOTE | 2018-12-24 06:00 | NUR ---
NURSE NOTES: PAGED DR. LANDIN REGARDING ADMIT ORDERS. SPOKE WITH KATHARINE, AWAITING CALL BACK. WILL CONTINUE TO MONITOR AND FOLLOW W/ PLAN OF CARE.
--- NOTE | 2018-12-24 06:42 | NUR ---
CASE MANAGEMENT:REVIEW 58 YR OLD MALE FROM HOME CC; CHEST PAIN PMH: ESRD ON HD T-TH-SAT. CVA. DM SI: ACS 97.6 62 16 155/68 95% ON RA H/H-11.2/35.4 PLT-139 BUN+72 CR+12.1 GLUCOSE+128 BNP+[id number] TROPONIN(-) IS: ASA PO X1 250CC NS BOLUS X1 CHEST XRAY : TO TELEMETRY INTERQUAL
--- NOTE | 2018-12-24 07:15 | NUR ---
HAND-OFF: Report given to LORI ASHTON.
--- NOTE | 2018-12-24 07:15 | NUR ---
NURSE NOTES: Received patient from LORI Patel in bed sleeping, at bedside. Pt is came on the floor per LORI Patel AT 6:00AM, no orders yet, will follow up. Patient is a dialysis pt and has dialysis on , , SAT at [facility]. No s/s of pain or acute distress noted. Bed is in lowest position with bedside rails up X3. Call light is within reach. Will continue to monitor.
[2018-12-24] MEDS: Tylenol #3 tab (300mg/30mg) ORAL PRN ×2 (08:56→09:58)
[2018-12-24] MEDS ORDERED: Lisinopril 10mg tab ORAL SCH (09:00)
[2018-12-24] MEDS ORDERED: Eliquis 2.5mg tablet ORAL SCH (09:00)
[2018-12-24] MEDS ORDERED: Carvedilol 6.25mg Tab ORAL SCH (09:00)
[2018-12-24] MEDS ORDERED: NIFEdipine 10mg cap ORAL SCH (09:00)
[2018-12-24] MEDS ORDERED: cloNIDine 0.2mg Tab ORAL SCH (09:00)
[2018-12-24] MEDS ORDERED: Sertraline 50mg tab ORAL SCH (09:00)
[2018-12-24] MEDS ORDERED: NovoLOG Insulin Flexpen SUBQ SCH (11:30)
--- NOTE | 2018-12-24 11:47 | Diagnostic Imaging Report ---
Indication: Chest pain Technique: One view of the chest Comparison: 09/10/2018 Findings: There is a left chest tunneled dialysis catheter in good position, not evident previously. The lungs and pleural spaces are clear. The heart size is normal. Impression: No acute process
--- NOTE | 2018-12-24 12:45 | History and Physical Report ---
DATE OF ADMISSION: 12/24/2018 HISTORY OF PRESENT ILLNESS: This is a 58-year-old male with a history of ESRD, on dialysis, normally getting his dental care at he came to the hospital with chest pain. This was left-sided, nonradiating. Upon arrival, the pain resolved. The patient undergoes HD on Sunday, , and Sunday. His pain resolved by the time the patient was seen and evaluated by the ER physician. PAST MEDICAL HISTORY: Notable for diabetes mellitus, hypertension, CVA, and ESRD, on dialysis. HOME MEDICATIONS: Reviewed and reconciled in the chart. SURGICAL HISTORY: None. ALLERGIES: To Tylenol and hydrocodone. REVIEW OF SYSTEMS: Denies any headaches, hematemesis, melena, hematochezia, night sweats, or weight loss. PHYSICAL EXAMINATION: GENERAL: Reveals a 58-year-old male. VITAL SIGNS: Blood pressure 150/60, heart rate 64, respiratory rate , afebrile. HEENT: Unremarkable. LUNGS: Clear. Breath sounds bilaterally. CARDIAC: Normal heart sounds. ABDOMEN: Soft. EXTREMITIES: There is no edema. . DIAGNOSTIC AND LABORATORY DATA: EKG shows normal sinus rhythm. X-ray chest showed cardiomegaly, PermCath in place. Lab testing shows hemoglobin 11.9, otherwise normal CBC, creatinine is 12. IMPRESSION: 1. Chest pain, rule out ACS. 2. Diabetes mellitus. 3. Hypertension. 4. CVA. 5. ESRD, on dialysis. DISCUSSION: Admitted to the hospital. We will consult Nephrology and Cardiology. Continue present medications and care. 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 . Saúl Hubbard M.D. DR: CARLOS JOB#: [id number] CC:
--- NOTE | 2018-12-24 13:23 | Cardiology Report ---
APPROVED REPORT EKG Measurement Heart [id number] Normal sinus rhythm Normal ECG
--- NOTE | 2018-12-26 14:14 | Discharge Summary ---
Discharge Summary Discharge Summary _ DATE OF ADMISSION: 12/24/2018 DATE OF DISCHARGE: 12/24/2018 Patient left AGAINST MEDICAL ADVICE REASON FOR ADMISSION: 58 years old male with past medical history of end-stage renal disease , on hemodialysis, diabetes mellitus, hypertension, history of CVA , presented to ED with complaint of left-sided sided nonradiating chest pain. Chest pain already resolved , when patient was seen by emergency room physician. Upon evaluation vital signs were stable. Laboratory workup revealed no leukocytosis ,mild anemia with hemoglobin 11.2, hematocrit 35.4 , platelets 139. Stable electrolytes. BUN 72, creatinine 12.1, consistent with known history of end-stage renal disease. Stable LFT, glucose 173. Troponin-0 0.004. Pro BNP [id number]. EKG revealed sinus rhythm, no acute ischemic changes. Chest x-ray revealed no acute cardiopulmonary pathology. Chest x-ray demonstrated left chest Perma-catheter in good position. Patient took aspirin at home . Patient was admitted to telemetry floor for further management. HOSPITAL COURSE: Patient admitted to telemetry floor. Nephrology and cardiology consult were requested. Serial troponin were ordered. Home medication were continued, including anticoagulation with Apixaban, beta jillian, MADHURI inhibitor and CCB. Hemodialysis to be provided as per engraver machine recommendation. Blood sugar was managed with sliding scale of insulin. Nitroglycerin was on board as needed. Patient decided to sign AMA . The risks and consequences of signing AGAINST MEDICAL ADVICE were discussed with patient in detail. Patient verbalized understanding, nevertheless signed AMA form and left. FINAL DIAGNOSES: Chest pain ,rule out acute coronary syndrome Hypertension Diabetes mellitus History of CVA End-stage renal disease , on hemodialysis I have been assigned to dictate discharge summary for this account. I was not involved in the patient's management. Pennie Means NP Dec 26, 2018 14:14
== END 2018-12-24 09:50 | disposition left against medical advice (07) | DRG 311 ==
LOC: EMR 03:37 → 2E 03:43 → EDBEDREQ 04:54
DX: I24.9 Acute ischemic heart disease, unspecified (principal); N18.6 End stage renal disease; I12.0 Hypertensive chronic kidney disease with stage 5 chronic kidney disease or end stage renal disease; Z86.73 Personal history of transient ischemic attack (TIA), and cerebral infarction without residual deficits; E11.22 Type 2 diabetes mellitus with diabetic chronic kidney disease; Z99.2 Dependence on renal dialysis; Z88.6 Allergy status to analgesic agent; R07.9 Chest pain, unspecified
CPT/HCPCS: 36415; 71045; 80053; 82550; 82553; 82962; 83880; 84484; 85025; 87081; 93005; 99285; J1815